=== PATIENT | female | born 1955 | race Caucasian/White ===

== ENCOUNTER → 2020-07-29 15:48 | Outpatient (CLI) | payer MEDICARE, OTHER, SELFPAY ==
--- NOTE | ~2020-07-29 | CT_ITS ---
EXAMINATION: CT sinus wo con EXAM DATE: 07/29/2020 16:07 INDICATION: Chronic sinusitis. TECHNIQUE: Spiral CT of the sinuses was acquired in the axial plane. Coronal and sagittal reformatte d images were also reviewed. The dose-length product (DLP) for this examination was 299.47 mGy-cm. Iterative reconstruction (ASIR) was used as dose reduction technique. There is no prior study for co mparison. FINDINGS: Hypoplastic frontal sinuses. There is mild bilateral ethmoid mucoperiosteal thickening. T he other sinuses are well aerated, no air-fluid levels. The ostiomeatal units are patent. There is no sinus wall thickening. There is mild to moderate leftward nasal septal deviation. The mastoi d air cells and middle ears are well aerated. External auditory canals are patent. The orbits and visualized soft tissues are unremarkable. IMPRESSION: 1. Mild bilateral ethmoid mucoperiosteal thickening. 2. Nasal septal deviation. Reviewed, dictated and finalized at location A.
== END ==
PROVIDERS: PCP Family Medicine Sports Medicine
DX: J32.4 Chronic pansinusitis (principal); J34.2 Deviated nasal septum
CPT/HCPCS: 70486